=== PATIENT | female | born 1990 | race American Indian/Alaskan Native ===

== ENCOUNTER 2019-03-24 10:48 | Emergency (ER) | payer SELFPAY ==
[2019-03-24 10:55] VITALS: BP 166/81
[2019-03-24 11:41] LABS: Bacteria,Urine 1+ /HPF (Negative); Bilirubin,Urine NEG (Negative); Blood,Urine LG (Negative); Mucus,Urine FEW /HPF; Protein,Urine <15 mg/dL mg/dL (Negative); Urobilinogen,Urine < 2.0 mg/dL (<2.0)
[2019-03-24 11:46] LABS: Color,Urine Yellow (Yellow)
--- NOTE | 2019-03-24 12:12 | Emergency Department Report ---
ED Female HPI - General Chief complaint: Urogenital-Female Stated complaint: ABDOMINAL PAIIN/MISS PERIOD Time Seen by Provider: 03/24/19 11:14 Source: patient Mode of arrival: Ambulatory Limitations: No Limitations - History of Present Illness Initial comments: This 28-year-old female who presents to ED complaining lower abdominal cramping for the past 3 weeks. Patient states she's also had intermittent vaginal spotting with swallowing her last menstrual period and now. States that her last menstrual cycle As 01/21/2019. She denies vaginal discharge, dysuria, fever or nausea or vomiting or diarrhea - Related Data Previous Rx's Medication Instructions Recorded Last Taken Type Acetaminophen [Tylenol] 500 mg PO Q6HR #30 tablet 03/24/19 Unknown Rx Nitrofurantoin [place]/M-Cryst 100 mg PO Q12HR #14 capsule 03/24/19 Unknown Rx [Macrobid CAP] Ibuprofen [Motrin] 800 mg PO Q8HR #30 tablet 03/29/19 Unknown Rx Ondansetron (Nf) [Zofran TAB] 8 mg PO Q8HR #20 tablet 03/29/19 Unknown Rx Allergies Allergy/AdvReac Type Severity Reaction Status Date / Time No Known Allergies Allergy Verified 03/29/19 12:18 ED Review of Systems ROS: Stated complaint: ABDOMINAL PAIIN/MISS PERIOD Other details as noted in HPI Comment: All other systems reviewed and negative ED Past Medical Hx - Past Medical History Previous Medical History?: No - Surgical History Past Surgical History?: No - Social History Smoking Status: Current Every Day Smoker Substance Use Type: Alcohol, Marijuana - Medications Home Medications: Home Medications Medication Instructions Recorded Confirmed Last Taken Type Acetaminophen [Tylenol] 500 mg PO Q6HR #30 tablet 03/24/19 Unknown Rx Nitrofurantoin [place]/M-Cryst 100 mg PO Q12HR #14 capsule 03/24/19 Unknown Rx [Macrobid CAP] Ibuprofen [Motrin] 800 mg PO Q8HR #30 tablet 03/29/19 Unknown Rx Ondansetron (Nf) [Zofran TAB] 8 mg PO Q8HR #20 tablet 03/29/19 Unknown Rx ED Physical Exam - General Limitations: No Limitations General appearance: alert, in no apparent distress - Head Head exam: Present: atraumatic, normocephalic - Eye Eye exam: Present: normal appearance - ENT ENT exam: Present: mucous membranes moist - Neck Neck exam: Present: normal inspection - Respiratory Respiratory exam: Present: normal lung sounds bilaterally. Absent: respiratory distress - Cardiovascular Cardiovascular Exam: Present: regular rate, normal rhythm. Absent: systolic murmur, diastolic murmur, rubs, gallop - GI/Abdominal GI/Abdominal exam: Present: soft, normal bowel sounds - Extremities Exam Extremities exam: Present: normal inspection - Back Exam Back exam: Present: normal inspection - Neurological Exam Neurological exam: Present: alert, oriented X3 - Psychiatric Psychiatric exam: Present: normal affect, normal mood - Skin Skin exam: Present: warm, dry, intact, normal color. Absent: rash ED Course Vital Signs 03/24/19 10:53 Temperature 98.3 F Pulse Rate 79 Respiratory 18 Rate Blood Pressure 166/81 O2 Sat by Pulse 100 Oximetry ED Medical Decision Making - Radiology Data Radiology results: report reviewed, image reviewed TECHNIQUE: Transabdominal and transvaginal ultrasound with color Doppler imaging. FINDINGS: The uterus is anteverted. The uterus measures 8.2 x 3.7 x 4.1 cm. No uterine mass. Normal cervix. The endometrial stripe measures 1.1 cm. No intrauterine is visualized. The right ovary measures 4.0 x 2.3 x 2.8 cm. Superior to the right ovary a 3.6 x 2.4 x 2.3 cm predominantly solid mass is identified. There is no obvious pole or ring of fire on color Doppler in this area. The left ovary is not confidently identified. There is a complex predominantly cystic mass in the left adnexa measuring up to 8.8 x 5.8 x 6.5 cm. This may represent a complex left ovarian cyst. No o bvious pole in this area. No pelvic fluid collection. IMPRESSION: No intrauterine is visualized. The endometrial stripe measures 1.1 cm. There are complex bilateral adnexal lesions as described above. Please note that an ectopic cannot be excluded at this time. Correlation with beta hCG levels and close interval follow-up is recommended. Signer Name: Marciano Gtz Jr, MD Signed: 03/24/2019 1:50 PM Workstation Name: [id number] - Medical Decision Making 28-year-old female presents to ED with vaginal spotting in the positive tests ED course: Pt received ultra sound, CBC, urinalysis, test and quantitative ED All labs within normal limits, quantitative elevated matching gestation age Patient states that bleeding is resolved Patient is to be follow up with [facility] in 2-3 days for repeat Quant and ultrasou nd in 1 week. Discussed ectopic is possible Ultrasound. See reported above Vital signs normalized patient is in no acute distress. I discussed with the patient if follow-up with her [facility]. I discussed all labs and ultrasound findings with the patient. I discussed with the patient that he if bleeding worsens or new symptoms develop to return to ED immediately Critical care attestation.: If time is entered above; I have spent that time in minutes in the direct care of this critically ill patient, excluding procedure time. ED Disposition Clinical Impression: Vaginal bleeding in , UTI (urinary tract infection), Ovarian cyst Disposition: TO HOME OR SELFCARE Is pt being admited?: No Does the pt Need Aspirin: No Condition: Stable Instructions: Ectopic (ED), Threatened Miscarriage (ED), Ovarian Cyst (ED), Urinary Tract Infection in Women (ED) Additional Instructions: Make sure to follow up with the [facility] as discussed. Take all your medications as you've been prescribed. If you have any worsening symptoms or develop new symptoms please return to ED immediately. Prescriptions: Acetaminophen [Tylenol] 500 mg PO Q6HR #30 tablet Nitrofurantoin [place]/M-Cryst [Macrobid CAP] 100 mg PO Q12HR #14 capsule [facility] [Primary Care Provider[facility] - 3-5 Days SHORTY CARO MD [Referring] - 3-5 Days JOVAN CARO MD [Referring] - 3-5 Days [facility] [Provider Group] - 3-5 Days Forms: Work/School Release Form(ED) Time of Disposition: 14:09
--- NOTE | 2019-03-24 13:54 | Ultrasound Report ---
ULTRASOUND OB LESS THAN 14 WEEKS FETUS ULTRASOUND OB TRANSVAGINAL HISTORY: Right-sided pelvic pain for 5 days, vaginal spotting, positive urine test. COMPARISON: None. TECHNIQUE: Transabdominal and transvaginal ultrasound with color Doppler imaging. FINDINGS: The uterus is anteverted. The uterus measures 8.2 x 3.7 x 4.1 cm. No uterine mass. Normal cervix. The endometrial stripe measures 1.1 cm. No intrauterine is visualized. The right ovary measures 4.0 x 2.3 x 2.8 cm. Superior to the right ovary a 3.6 x 2.4 x 2.3 cm predomi nantly solid mass is identified. There is no obvious pole or ring of fire on color Doppler in t his area. The left ovary is not confidently identified. There is a complex predominantly cystic mass in the lef t adnexa measuring up to 8.8 x 5.8 x 6.5 cm. This may represent a complex left ovarian cyst. No obvio us pole in this area. No pelvic fluid collection. IMPRESSION: No intrauterine is visualized. The endometrial stripe measures 1.1 cm. There are complex bilateral adnexal lesions as described above. Please note that an ectopic cannot be excluded at this time. Correlation with beta hCG levels and close interval follow-up is re commended. Signer Name: Marciano Gtz Jr, MD Signed: 03/24/2019 1:50 PM Workstation Name: [id number]
== END 2019-03-24 14:28 | disposition home or self-care (01) ==
LOC: ED 10:48
DX: O23.41 Unspecified infection of urinary tract in pregnancy, first trimester (principal); N83.202 Unspecified ovarian cyst, left side; O99.331 Smoking (tobacco) complicating pregnancy, first trimester; F17.200 Nicotine dependence, unspecified, uncomplicated; Z3A.01 Less than 8 weeks gestation of pregnancy
CPT/HCPCS: 36415; 76801; 76817; 81001; 84702; 84703; 87086

== ENCOUNTER 2019-03-29 12:16 | Emergency (ER) | payer SELFPAY ==
--- NOTE | 2019-03-29 12:26 | Event Note ---
ED Screening Note ED Screening Note: severe abd pain and vomiting here 2 days ago and could not ro ectopic 02/21 g1 pmh none This initial assessment/diagnostic orders/clinical plan/treatment(s) is/are subject to change based on patients health status, clinical progression and re- assessment by fellow clinical providers in the ED. Further treatment and workup at subsequent clinical providers discretion. Patient/guardian urged not to elope from the ED as their condition may be serious if not clinically assessed and managed. Initial orders include: ro ectopic
[2019-03-29 12:27] VITALS: BP 165/96
[2019-03-29] MEDS ORDERED: NACL 0.9% 1000 ML 1,000 ML IV ONE (12:28)
[2019-03-29 12:58] LABS: Hemoglobin 12.1 gm/dl (10.1-14.3); Mean Corpuscular HGB Conc 33 % (30-34); Mean Corpuscular Volume 71 fl (79-97); Platelet Count 264 K/mm3 (140-440); Red Blood Count 5.19 M/mm3 (3.65-5.03); Red Cell Distribution Width 15.3 % (13.2-15.2)
[2019-03-29 13:17] LABS: BUN/Creatinine Ratio 13; Blood Urea Nitrogen 9 mg/dL (7-17); Calcium 8.9 mg/dL (8.4-10.2); Hemolysis Index 8
[2019-03-29 13:54] LABS: Bilirubin,Urine NEG (Negative); Blood,Urine LG (Negative); Color,Urine Yellow (Yellow); Mucus,Urine 3+ /HPF; Protein,Urine <15 mg/dL mg/dL (Negative)
[2019-03-29] MEDS ORDERED: ZOFRAN IV ONE (14:30)
[2019-03-29] MEDS ORDERED: TORADOL IV ONE (14:30)
--- NOTE | 2019-03-29 14:35 | Emergency Department Report ---
ED Female HPI - General Chief complaint: Nausea/Vomiting/Diarrhea Stated complaint: /BLEEDING/VOMITTING Time Seen by Provider: 03/29/19 12:24 Source: patient Mode of arrival: Wheelchair Limitations: No Limitations - History of Present Illness Initial comments: She is a 28-year-old female who returns to ED complaining of some pelvic cramping, bleeding and nausea times one day. She denies fevers/chills/diarrhea/chest pain/shortness of breath/headache vaginal discharge/itching or dysuria. Patient reports that she has not been able to follow-up with the [facility] as discussed from her last visit here 5 days ago. - Related Data Previous Rx's Medication Instructions Recorded Last Taken Type Acetaminophen [Tylenol] 500 mg PO Q6HR #30 tablet 03/24/19 Unknown Rx Nitrofurantoin [place]/M-Cryst 100 mg PO Q12HR #14 capsule 03/24/19 Unknown Rx [Macrobid CAP] Ibuprofen [Motrin] 800 mg PO Q8HR #30 tablet 03/29/19 Unknown Rx Ondansetron (Nf) [Zofran TAB] 8 mg PO Q8HR #20 tablet 03/29/19 Unknown Rx Allergies Allergy/AdvReac Type Severity Reaction Status Date / Time No Known Allergies Allergy Verified 03/29/19 12:18 ED Review of Systems ROS: Stated complaint: /BLEEDING/VOMITTING Other details as noted in HPI Comment: All other systems reviewed and negative ED Past Medical Hx - Past Medical History Previous Medical History?: No - Surgical History Past Surgical History?: No - Social History Smoking Status: Current Every Day Smoker Substance Use Type: Marijuana - Medications Home Medications: Home Medications Medication Instructions Recorded Confirmed Last Taken Type Acetaminophen [Tylenol] 500 mg PO Q6HR #30 tablet 03/24/19 Unknown Rx Nitrofurantoin [place]/M-Cryst 100 mg PO Q12HR #14 capsule 03/24/19 Unknown Rx [Macrobid CAP] Ibuprofen [Motrin] 800 mg PO Q8HR #30 tablet 03/29/19 Unknown Rx Ondansetron (Nf) [Zofran TAB] 8 mg PO Q8HR #20 tablet 03/29/19 Unknown Rx ED Physical Exam - General Limitations: No Limitations General appearance: alert, in no apparent distress - Head Head exam: Present: atraumatic, normocephalic - Eye Eye exam: Present: normal appearance - ENT ENT exam: Present: mucous membranes moist - Neck Neck exam: Present: normal inspection - Respiratory Respiratory exam: Present: normal lung sounds bilaterally. Absent: respiratory distress - Cardiovascular Cardiovascular Exam: Present: regular rate, normal rhythm. Absent: systolic murmur, diastolic murmur, rubs, gallop - GI/Abdominal GI/Abdominal exam: Present: soft, normal bowel sounds - Extremities Exam Extremities exam: Present: normal inspection - Back Exam Back exam: Present: normal inspection - Neurological Exam Neurological exam: Present: alert, oriented X3 - Psychiatric Psychiatric exam: Present: normal affect, normal mood - Skin Skin exam: Present: warm, dry, intact, normal color. Absent: rash ED Course Vital Signs 03/29/19 03/29/19 12:25 13:39 Temperature 98.1 F Pulse Rate 91 H Respiratory 20 18 Rate Blood Pressure 165/96 O2 Sat by Pulse 99 Oximetry ED Medical Decision Making - Lab Data Result diagrams: 03/29/19 12:39 03/29/19 12:39 Laboratory Last Values WBC 5.9 K/mm3 (4.5-11.0) 03/29/19 12:39 RBC 5.19 M/mm3 (3.65-5.03) H 03/29/19 12:39 Hgb 12.1 gm/dl (10.1-14.3) 03/29/19 12:39 Hct 37.0 % (30.3-42.9) 03/29/19 12:39 MCV 71 fl (79-97) L 03/29/19 12:39 MCH 23 pg (28-32) L 03/29/19 12:39 MCHC 33 % (30-34) 03/29/19 12:39 RDW 15.3 % (13.2-15.2) H 03/29/19 12:39 Plt Count 264 K/mm3 (140-440) 03/29/19 12:39 Sodium 139 mmol/L (137-145) 03/29/19 12:39 Potassium 4.2 mmol/L (3.6-5.0) 03/29/19 12:39 Chloride 104.2 mmol/L (98-107) 03/29/19 12:39 Carbon Dioxide 25 mmol/L (22-30) 03/29/19 12:39 14 mmol/L 03/29/19 12:39 BUN 9 mg/dL (7-17) 03/29/19 12:39 0.7 mg/dL (0.7-1.2) 03/29/19 12:39 Estimated GFR > 60 ml/min 03/29/19 12:39 13 % 03/29/19 12:39 Glucose 110 mg/dL (65-100) H 03/29/19 12:39 Calcium 8.9 mg/dL (8.4-10.2) 03/29/19 12:39 HCG, Quant 895.5 mIU/mL (0-4) H 03/29/19 12:39 Yellow (Yellow) 03/29/19 13:30 Slightly-cloudy (Clear) 03/29/19 13:30 5.0 (5.0-7.0) 03/29/19 13:30 Ur Specific [place] 1.025 (1.003-1.030) 03/29/19 13:30 <15 mg/dl mg/dL (Negative) 03/29/19 13:30 Neg mg/dL (Negative) 03/29/19 13:30 Tr mg/dL (Negative) 03/29/19 13:30 Lg (Negative) 03/29/19 13:30 Neg (Negative) 03/29/19 13:30 Neg (Negative) 03/29/19 13:30 2.0 mg/dL (<2.0) 03/29/19 13:30 Ur Leukocyte Esterase Sm (Negative) 03/29/19 13:30 19.0 /HPF (0.0-6.0) H 03/29/19 13:30 27.0 /HPF (0.0-6.0) 03/29/19 13:30 U Epithel Cells (Auto) 2.0 /HPF (0-13.0) 03/29/19 13:30 3+ /HPF 03/29/19 13:30 Blood Type O POSITIVE 03/29/19 12:39 Ord Rhogam Gestat Weeks Rh pos WEEKS 03/29/19 12:39 - Medical Decision Making This 28-year-old female presents with vaginal bleeding. Discussed with the patient that this is normal findings in spontaneous miscarriage. Discussed follow-up with [facility] in 3-5 days. Beta quantitative reduced to 895 from 1800. This is indicative that this is failed . Discussed continued Zofran, pain medication and follow-up warranted. Patient is stable patient received 1 L of normal saline, Zofran and pain medication. There was no active vomiting in the ED. Patient reports to feeling much better prior to discharge Patient is in no acute respiratory distress. Patient with instructions and states will follow-up. Critical care attestation.: If time is entered above; I have spent that time in minutes in the direct care of this critically ill patient, excluding procedure time. ED Disposition Clinical Impression: Spontaneous Disposition: DC- TO HOME OR SELFCARE Is pt being admited?: No Does the pt Need Aspirin: No Condition: Stable Instructions: Spontaneous Miscarriage (ED) Additional Instructions: Make sure to follow up with the primary care physician as discussed. Take all your medications as you've been prescribed. If you have any worsening symptoms or develop new symptoms please return to ED immediately. Prescriptions: Ibuprofen [Motrin] 800 mg PO Q8HR #30 tablet Ondansetron (Nf) [Zofran TAB] 8 mg PO Q8HR #20 tablet Referrals: CARMEN CONTRERAS MD [Primary Care Provider] - 3-5 Days [facility] [Provider Group] - 3-5 Days [facility] [Provider Group] - 3-5 Days Forms: Work/School Release Form(ED) Time of Disposition: 14:41
[2019-03-29] MEDS ORDERED: TORADOL ONE (15:17)
[2019-03-29] MEDS ORDERED: ROCEPHIN 250 MG in NACL 0.9% 50 ML IV ONE (15:44)
== END 2019-03-29 15:34 | disposition home or self-care (01) ==
LOC: ED 12:16
DX: O03.9 Complete or unspecified spontaneous abortion without complication (principal); O21.8 Other vomiting complicating pregnancy; O99.330 Smoking (tobacco) complicating pregnancy, unspecified trimester; O99.320 Drug use complicating pregnancy, unspecified trimester; F12.10 Cannabis abuse, uncomplicated; Z3A.00 Weeks of gestation of pregnancy not specified
CPT/HCPCS: 36415; 80048; 81001; 84702; 85027; 86900; 86901; 87086; 96361; 96374; 96375; 99283; J1885; J2405; J7030; J0696

== ENCOUNTER 2019-11-23 22:02 | Emergency (ER) | payer SELFPAY ==
[2019-11-24 00:06] VITALS: BP 122/82
[2019-11-24 00:27] LABS: Bacteria,Urine 1+ /HPF (Negative); Bilirubin,Urine NEG (Negative); Blood,Urine SM (Negative); Color,Urine Yellow (Yellow); Protein,Urine <15 mg/dL mg/dL (Negative); Urobilinogen,Urine < 2.0 mg/dL (<2.0)
[2019-11-24 00:41] LABS: HCG Qualitative,Urine Negative (Negative)
--- NOTE | 2019-11-24 02:12 | Emergency Department Report ---
ED General Adult HPI - General Chief complaint: Dizziness Stated complaint: LIGHTHEADED DIZZY NAUSEA WEAK Source: patient Mode of arrival: Ambulatory Limitations: No Limitations - History of Present Illness Initial comments: Patient is a 28-year-old -[place] female with no past medical history who presents to the ED with complaint of acute onset persistent nausea, gener alized weakness, lightheadedness and dizziness and generalized fatigue for the last 2 days. Patient denies chest pain, shortness of breath, fever, chills, vomiting, abdominal pain, diarrhea, dysuria, urinary frequency and urgency, syncope, palpitations, sore throat, nasal and sinus congestion or headache. MD Complaint: Nausea, lightheadedness, dizziness and generalized weakness -: Sudden, days(s) (2) Location: head, chest Radiation: non-radiation Severity scale (0 -10): 1 Quality: dull Consistency: intermittent Improves with: none Worsens with: none Associated Symptoms: denies other symptoms, headaches, loss of appetite, malaise, nausea/vomiting, weakness. denies: confusion, chest pain, cough, diaphoresis, fever/chills, rash, seizure, shortness of breath, syncope, other Treatments Prior to Arrival: none - Related Data Previous Rx's Medication Instructions Recorded Last Taken Type Acetaminophen [Tylenol] 500 mg PO Q6HR #30 tablet 03/24/19 Unknown Rx Nitrofurantoin [place]/M-Cryst 100 mg PO Q12HR #14 capsule 03/24/19 Unknown Rx [Macrobid CAP] Ibuprofen [Motrin] 800 mg PO Q8HR #30 tablet 03/29/19 Unknown Rx Ondansetron (Nf) [Zofran TAB] 8 mg PO Q8HR #20 tablet 03/29/19 Unknown Rx Allergies Allergy/AdvReac Type Severity Reaction Status Date / Time No Known Allergies Allergy Verified 03/29/19 12:18 ED Review of Systems ROS: Stated complaint: LIGHTHEADED DIZZY NAUSEA WEAK Other details as noted in HPI Constitutional: denies: chills, fever Eyes: denies: eye pain, eye discharge, vision change ENT: denies: ear pain, throat pain Respiratory: denies: cough, shortness of breath, wheezing Cardiovascular: denies: chest pain, palpitations Endocrine: no symptoms reported Gastrointestinal: nausea. denies: abdominal pain, diarrhea Genitourinary: denies: urgency, dysuria, discharge Musculoskeletal: denies: back pain, joint swelling, arthralgia Skin: denies: rash, lesions Neurological: headache, other (lightheadedness). denies: weakness, paresthesias Psychiatric: anxiety. denies: depression Hematological/Lymphatic: denies: easy bleeding, easy bruising ED Past Medical Hx - Past Medical History Previous Medical History?: Yes Hx Asthma: Yes - Surgical History Past Surgical History?: No - Social History Smoking Status: Current Every Day Smoker Substance Use Type: Marijuana - Medications Home Medications: Home Medications Medication Instructions Recorded Confirmed Last Taken Type Acetaminophen [Tylenol] 500 mg PO Q6HR #30 tablet 03/24/19 Unknown Rx Nitrofurantoin [place]/M-Cryst 100 mg PO Q12HR #14 capsule 03/24/19 Unknown Rx [Macrobid CAP] Ibuprofen [Motrin] 800 mg PO Q8HR #30 tablet 03/29/19 Unknown Rx Ondansetron (Nf) [Zofran TAB] 8 mg PO Q8HR #20 tablet 03/29/19 Unknown Rx ED Physical Exam - General Limitations: No Limitations General appearance: alert, in no apparent distress - Head Head exam: Present: atraumatic, normocephalic, normal inspection - Eye Eye exam: Present: normal appearance, PERRL, EOMI Pupils: Present: normal accommodation - ENT ENT exam: Present: normal exam, normal orophraynx, mucous membranes moist, TM's normal bilaterally, normal external ear exam - Neck Neck exam: Present: normal inspection, full ROM - Respiratory Respiratory exam: Present: normal lung sounds bilaterally. Absent: respiratory distress, wheezes, rhonchi, chest wall tenderness - Cardiovascular Cardiovascular Exam: Present: regular rate, normal rhythm, normal heart sounds. Absent: systolic murmur, diastolic murmur, rubs, gallop - GI/Abdominal GI/Abdominal exam: Present: soft, normal bowel sounds. Absent: tenderness, guarding, hyperactive bowel sounds, hypoactive bowel sounds - Extremities Exam Extremities exam: Present: normal inspection, full ROM, normal capillary refill - Back Exam Back exam: Present: normal inspection, full ROM. Absent: tenderness, CVA tenderness (R), CVA tenderness (L), muscle spasm, paraspinal tenderness - Neurological Exam Neurological exam: Present: alert, oriented X3, CN II-XII intact, normal gait, reflexes normal - Psychiatric Psychiatric exam: Present: normal affect, normal mood, anxious - Skin Skin exam: Present: warm, dry, intact, normal color. Absent: rash ED Course Vital Signs 11/23/19 22:45 Temperature 98.6 F Respiratory 14 Rate Blood Pressure 122/82 ED Medical Decision Making - Medical Decision Making This is a 28-year-old female with a history of anxiety who presented to the ED with acute onset persistent nausea, lightheadedness, generalized weakness and generalized fatigue for 2 days. In the ED, patient is alert and oriented x3 and is not in any distress. I offered to perform test on the patient to determine the cause of her symptoms but the patient declined stating that she would like to leave the ED because she had already been waiting for 3 hours in the ED. Patient stated that she would like to go home and sleep instead of staying in the hospital to be tested and treated for her symptoms. Patient opted to sign out AGAINST MEDICAL ADVICE after being evaluated by the provider. Patient was advised to return to the ED immediately if symptoms get worse otherwise follow- up with her primary care physician in 2 to 3 days for reevaluation. - Differential Diagnosis Anxiety; Lightheadness; weakness Critical care attestation.: If time is entered above; I have spent that time in minutes in the direct care of this critically ill patient, excluding procedure time. ED Disposition Clinical Impression: Intermittent lightheadedness, Weakness generalized Disposition: DC-07 LEFT AGAINST MED ADVICE Is pt being admited?: No Does the pt Need Aspirin: No Condition: Stable Referrals: PRIMARY CARE, [Primary Care Provider] - 3-5 Days Forms: AMA Form Time of Disposition: 01:30 Print Language: PU[place]
== END 2019-11-24 01:38 | disposition left against medical advice (07) ==
LOC: ED 22:02
DX: R42 Dizziness and giddiness (principal); R53.1 Weakness; J45.909 Unspecified asthma, uncomplicated; F17.200 Nicotine dependence, unspecified, uncomplicated; F12.10 Cannabis abuse, uncomplicated; Z79.1 Long term (current) use of non-steroidal anti-inflammatories (NSAID); Z79.899 Other long term (current) drug therapy
CPT/HCPCS: 81001; 81025; 87086; 99283

== ENCOUNTER 2021-12-24 14:00 | Emergency (ER) | payer SELFPAY ==
[2021-12-24 14:31] VITALS: BP 112/73
--- NOTE | 2021-12-24 15:58 | Emergency Department Report ---
<LUNA SEAY A - Last Filed: 12/24/21 16:04> ED General Adult HPI - General Chief complaint: Abdominal Pain Stated complaint: CONFIRM PUI?: No Time Seen by Provider: 12/24/21 14:40 - History of Present Illness Initial comments: Patient had been seen by LEILANI prior to MD picking up the chart. Patient comes to the ER after having a positive test. She is reporting abdominal cramping and vaginal bleeding. She states that the bleeding is light. Her last menstrual cycle was 3-28 to 4-3. Patient has had one other that resulted in a miscarriage. Treatments Prior to Arrival: none - Related Data Previous Rx's Medication Instructions Recorded Last Taken Type Acetaminophen [Tylenol] 500 mg PO Q6HR #30 tablet 03/24/19 Unknown Rx Nitrofurantoin [place]/M-Cryst 100 mg PO Q12HR #14 capsule 03/24/19 Unknown Rx [Macrobid CAP] Ibuprofen [Motrin] 800 mg PO Q8HR #30 tablet 03/29/19 Unknown Rx Ondansetron (Nf) [Zofran TAB] 8 mg PO Q8HR #20 tablet 03/29/19 Unknown Rx Vit No.129/Iron/Folic 1 each PO ONCE #70 tab 12/24/21 Unknown Rx [ Tablet] Allergies Allergy/AdvReac Type Severity Reaction Status Date / Time No Known Allergies Allergy Verified 03/29/19 12:18 ED Review of Systems Comment: All other systems reviewed and negative ED Past Medical Hx - Family History Family history: no significant - Medications Home Medications: Home Medications Medication Instructions Recorded Confirmed Last Taken Type Acetaminophen [Tylenol] 500 mg PO Q6HR #30 tablet 03/24/19 Unknown Rx Nitrofurantoin [place]/M-Cryst 100 mg PO Q12HR #14 capsule 03/24/19 Unknown Rx [Macrobid CAP] Ibuprofen [Motrin] 800 mg PO Q8HR #30 tablet 03/29/19 Unknown Rx Ondansetron (Nf) [Zofran TAB] 8 mg PO Q8HR #20 tablet 03/29/19 Unknown Rx Vit No.129/Iron/Folic 1 each PO ONCE #70 tab 12/24/21 Unknown Rx [ Tablet] ED Medical Decision Making - Medical Decision Making I have ordered UA and test. It has been sent by the nurses. Given the doctor for a aspect of the chart I will relinquish care to him. Vital Signs 12/24/21 14:28 Temperature 98.6 F Pulse Rate 76 Blood Pressure 112/73 [Right] - Differential Diagnosis Rule out UTI//dysfunctional uterine bleeding ED Disposition Clinical Impression: Disposition: 01 HOME / SELF CARE / HOMELESS Is pt being admited?: No Does the pt Need Aspirin: No Condition: Stable Instructions: Abdominal Pain (ED) Prescriptions: Vit No.129/Iron/Folic [ Tablet] 1 each PO ONCE #70 tab Time of Disposition: 16:06 <SCARLET GUTIERREZ - Last Filed: 12/24/21 16:27> ED General Adult HPI - General Source: patient Mode of arrival: Ambulatory Limitations: No Limitations - History of Present Illness Initial comments: Patient is a 31-year-old female who presents to the emergency department today to "see if I am "patient states that her last menstrual cycle was on the fourth of this month she is sexually active. She states that she took a test at the [email or web address] [facility] and it was positive. But she wants to come to the ER and see if the one we do is positive. Patient has no vaginal discharge no vaginal bleeding no abdominal pain no nausea or vomiting. Severity scale (0 -10): 3 ED Review of Systems ROS: Stated complaint: CONFIRM Other details as noted in HPI Comment: All other systems reviewed and negative Constitutional: denies: chills, fever Eyes: denies: eye pain, eye discharge, vision change ENT: denies: ear pain, throat pain Respiratory: denies: cough, shortness of breath, wheezing Cardiovascular: denies: chest pain, palpitations Endocrine: no symptoms reported Gastrointestinal: denies: abdominal pain, nausea, diarrhea Genitourinary: denies: urgency, dysuria, discharge Musculoskeletal: denies: back pain, joint swelling, arthralgia Skin: denies: rash, lesions Neurological: denies: headache, weakness, paresthesias Psychiatric: denies: anxiety, depression Hematological/Lymphatic: denies: easy bleeding, easy bruising ED Past Medical Hx - Past Medical History Previous Medical History?: Yes Hx Asthma: Yes - Surgical History Past Surgical History?: No - Social History Smoking Status: Current Every Day Smoker Substance Use Type: Marijuana ED Physical Exam - General Limitations: No Limitations General appearance: alert, in no apparent distress - Head Head exam: Present: atraumatic, normocephalic - Eye Eye exam: Present: normal appearance - ENT ENT exam: Present: mucous membranes moist - Neck Neck exam: Present: normal inspection - Respiratory Respiratory exam: Present: normal lung sounds bilaterally. Absent: respiratory distress - Cardiovascular Cardiovascular Exam: Present: regular rate, normal rhythm. Absent: systolic murmur, diastolic murmur, rubs, gallop - GI/Abdominal GI/Abdominal exam: Present: soft, normal bowel sounds - Extremities Exam Extremities exam: Present: normal inspection - Back Exam Back exam: Present: normal inspection - Neurological Exam Neurological exam: Present: alert, oriented X3 - Psychiatric Psychiatric exam: Present: normal affect, normal mood - Skin Skin exam: Present: warm, dry, intact, normal color. Absent: rash ED Course Vital Signs 12/24/21 14:28 Temperature 98.6 F Pulse Rate 76 Blood Pressure 112/73 [Right] ED Medical Decision Making - Medical Decision Making Chief medical diagnosis Differential medical diagnosis UTI, dysuria I will get urinalysis and urine test and will discharge patient if test is positive with TELECOMMUNICATIONS ANALYST and get if instructed patient to take vitamins Patient is I will discharge patient home additional verbal discharge instructions were given Critical care attestation.: If time is entered above; I have spent that time in minutes in the direct care of this critically ill patient, excluding procedure time. ED Disposition Is pt being admited?: No Does the pt Need Aspirin: No
[2021-12-24 16:18] LABS: HCG Qualitative,Urine Positive (Negative)
[2021-12-24 16:22] LABS: Bilirubin,Urine NEG (Negative); Blood,Urine MOD (Negative); Color,Urine Yellow (Yellow); Mucus,Urine 3+ /HPF; Protein,Urine <15 mg/dL mg/dL (Negative)
== END 2021-12-24 18:28 | disposition home or self-care (01) ==
LOC: ED 14:00
DX: O20.8 Other hemorrhage in early pregnancy (principal); R10.9 Unspecified abdominal pain; Z3A.01 Less than 8 weeks gestation of pregnancy; J45.909 Unspecified asthma, uncomplicated; F17.200 Nicotine dependence, unspecified, uncomplicated
CPT/HCPCS: 81001; 81025; 99283

== ENCOUNTER 2021-12-25 09:42 | Emergency (ER) | payer SELFPAY ==
[2021-12-25] MEDS ORDERED: ONDANSETRON 4 MG ODT TAB PO ONE (10:34)
[2021-12-25 11:20] LABS: Hematocrit 38.8 % (30.3-42.9); Hemoglobin 12.1 gm/dl (10.1-14.3); Mean Corpuscular HGB Conc 31 % (30-34); Mean Corpuscular Volume 71 fl (79-97); Platelet Count 234 K/mm3 (140-440); Red Blood Count 5.47 M/mm3 (3.65-5.03); Red Cell Distribution Width 14.3 % (13.2-15.2)
--- NOTE | 2021-12-25 11:21 | Ultrasound Report ---
ULTRASOUND PELVIS INDICATION: vag bleed preg. TECHNIQUE: Transabdominal. Duplex Color Doppler used: Yes. COMPARISON: None available FINDINGS: Uterus: Present. Size: 7.6 x 3.2 x 4 cm. Endometrial complex: Normal measuring 4.7 cm. Mass lesions: None. Additional findings: None. Right Ovary -- 5.3 x 5.1 cm. Blood flow: Normal. Cyst or mass: Complex cystic lesion measuring 4.4 cm. Adjacent lesion measuring 3.5 x 2.1 x 2.3 cm wi th a internal cystic structure. No yolk sac or pole identified. Left Ovary-- 3.4 x 3.1 x 2.6 cm. Blood flow: Normal. Cyst or mass: 2.6 cm cyst. Urinary Bladder: Normal. Free Fluid: None. Additional Findings: None. IMPRESSION: 1. No intrauterine . 2. Cysts in both adnexa. Right-sided lesion is larger and complex. 3. Indeterminate area right adnexa which could potentially contain an early gestational sac. This dem onstrates no pole or yolk sac. Signer Name: Phil Sawant MD Signed: 12/25/2021 11:16 AM Workstation Name: [id number]
--- NOTE | 2021-12-25 11:36 | Emergency Department Report ---
ED Female HPI - General Chief complaint: Nausea/Vomiting/Diarrhea Stated complaint: PREG/BLEEDING/VOMITING /WEEKS? Time Seen by Provider: 12/25/21 09:59 Source: patient Mode of arrival: Ambulatory Limitations: No Limitations - History of Present Illness Initial comments: Ms. Berkowitz is a 31-year-old -Citizen Of [place] female that comes to the emergency r oom again today with her . Yesterday she came to confirm the . Today she comes with vaginal bleeding. She has associated cramping. She is also reporting nausea and vomiting. Patient reports last menstrual period 12/15/2021 Complaint: vaginal bleeding -: Sudden Improves with: none Worsens with: none Are you Now?: Yes Associated Symptoms: denies other symptoms - Related Data Sexually active: Yes : 2 Previous Rx's Medication Instructions Recorded Last Taken Type Ondansetron [Zofran Odt] 4 mg PO Q8HR PRN #10 tab.rapdis 12/25/21 Unknown Rx Allergies Allergy/AdvReac Type Severity Reaction Status Date / Time No Known Allergies Allergy Verified 03/29/19 12:18 ED Review of Systems ROS: Stated complaint: PREG/BLEEDING/VOMITING /WEEKS? Other details as noted in HPI Comment: All other systems reviewed and negative ED Past Medical Hx - Past Medical History Previous Medical History?: Yes Hx Asthma: Yes - Surgical History Past Surgical History?: No - Family History Family history: no significant - Social History Smoking Status: Current Every Day Smoker Substance Use Type: Alcohol, Marijuana - Medications Home Medications: Home Medications Medication Instructions Recorded Confirmed Last Taken Type Ondansetron [Zofran Odt] 4 mg PO Q8HR PRN #10 tab.rapdis 12/25/21 Unknown Rx ED Physical Exam - General Limitations: No Limitations General appearance: alert, in no apparent distress - Head Head exam: Present: atraumatic, normocephalic - Eye Eye exam: Present: normal appearance - ENT ENT exam: Present: mucous membranes moist - Neck Neck exam: Present: normal inspection - Respiratory Respiratory exam: Present: normal lung sounds bilaterally. Absent: respiratory distress - Cardiovascular Cardiovascular Exam: Present: regular rate, normal rhythm. Absent: systolic murmur, diastolic murmur, rubs, gallop - GI/Abdominal GI/Abdominal exam: Present: soft, normal bowel sounds - Extremities Exam Extremities exam: Present: normal inspection - Back Exam Back exam: Present: normal inspection - Neurological Exam Neurological exam: Present: alert, oriented X3 - Psychiatric Psychiatric exam: Present: normal affect, normal mood - Skin Skin exam: Present: warm, dry, intact, normal color. Absent: rash ED Course Vital Signs 12/25/21 10:05 Temperature 97.5 F L Pulse Rate 85 Respiratory 18 Rate Blood Pressure 146/82 [Right] O2 Sat by Pulse 100 Oximetry ED Medical Decision Making - Lab Data Result diagrams: 12/25/21 11:05 - Radiology Data Radiology results: report reviewed, image reviewed see report - Medical Decision Making Labs 12/25/21 12/25/21 12/25/21 11:05 11:05 11:05 WBC 4.6 RBC 5.47 H Hgb 12.1 Hct 38.8 MCV 71 L MCH 22 L MCHC 31 RDW 14.3 Plt Count 234 HCG, Quant 2323 H Blood Type O POSITIVE Ord Rhogam Gestat Weeks Rh pos UA noted yesterday. Yesterday patient had no vaginal bleeding so beta quant was not done. Ultrasound was not done either because the patient was just here to confirm her . Rh+ Quant noted Ultrasound noted Patient initially medicated with p.o. Zofran-but she continued to vomit. Patient was found in the bathroom several times to retching. When I asked her to open the door Allis on the commode was mucus. She was then given a Phenergan suppository which she then went to the bathroom and lost the suppository. INT placed and IV Zofran given. Patient will be discharged home with discharge plan of care including diet, activity, medications and follow-up. She needs to see [facility] [facility]ICE ENGINEER in 48 hours for repeat lab work. She verbalizes understanding. Patient will be sent home with Zofran for her nausea and vomiting. She understands that she may or may not have a viable . - Differential Diagnosis ro ab Critical care attestation.: If time is entered above; I have spent that time in minutes in the direct care of this critically ill patient, excluding procedure time. ED Disposition Clinical Impression: Vaginal bleeding during Disposition: HOME / SELF CARE / HOMELESS Is pt being admited?: No Does the pt Need Aspirin: No Condition: Stable Additional Instructions: Pelvic rest Tylenol for pain Stay well-hydrated with water Zofran for nausea You need to see [facility] FI[employer] SERVICE ENGINEER in 48 hours. They will evaluate your . You need a specialist care beyond that of the emergency room. Take this paperwork with you so that they have your baseline numbers. Prescriptions: Ondansetron [Zofran Odt] 4 mg PO Q8HR PRN #10 tab.rapdis PRN Reason: Vomiting Referrals: PRIMARY CARE, [Primary Care Provider] - 3-5 Days ANGELO CHADWICK MD [Staff Physician] - 3-5 Days Time of Disposition: 13:37
[2021-12-25] MEDS ORDERED: PROMETHAZINE 25 MG RECT SUPP PR ONE (11:38)
[2021-12-25] MEDS ORDERED: SODIUM CHLORIDE 0.9% 1000 ML 1,000 ML IV ONE (12:27)
[2021-12-25] MEDS ORDERED: ONDANSETRON 4 MG/2 ML INJ IV ONE (12:27)
[2021-12-25] MEDS ORDERED: ACETAMINOPHEN 500 MG TAB PO ONE (12:46)
[2021-12-25] MEDS ORDERED: METOCLOPRAMIDE 10 MG/2 ML INJ IV ONE ×2 (13:38→13:40)
[2021-12-25] MEDS ORDERED: HALOPERIDOL LACTATE 5 MG/1 ML INJ IV ONE (13:39)
[2021-12-25 14:46] VITALS: BP 132/80
== END 2021-12-25 14:46 | disposition home or self-care (01) ==
LOC: ED 09:42
DX: O20.8 Other hemorrhage in early pregnancy (principal); Z3A.01 Less than 8 weeks gestation of pregnancy
CPT/HCPCS: 36415; 76801; 84702; 85027; 86900; 86901; 96361; 96374; 96375; 99284; J1630; J2405; J2765; J7030; J3490; Q0162